=== PATIENT | female | born 1960 | race Two or more races ===

== ENCOUNTER 2021-03-12 21:18 | Emergency (ER) | payer OTHER ==
[~2021-03-12] VITALS: Ht 162.6 cm; Wt 90.7 kg
--- NOTE | 2021-03-12 21:35 | NUR ---
PT BIBRA 89 FROM HOME FOR OVERDOSE ON "HAND FULL MEDS POSSIBLY XANAX". NO VERBAL RESPONSE.
--- NOTE | 2021-03-12 21:36 | NUR ---
POX ON. O2SAT 93% ON RA. PT OPENS EYES TO TOUCH. RESP EVEN AND NONLABORED.
[2021-03-12 21:58] LABS: BASOPHILS # (AUTO) 0.1 K/uL (0.0-0.2); BASOPHILS % (AUTO) 0.9 % (0.0-2.0); EOSINOPHILS % (AUTO) 3.4 % (0.0-6.0); HEMATOCRIT 41 % (33-45); HEMOGLOBIN 13.9 g/dL (11.5-14.8); LYMPHOCYTES # (AUTO) 1.7 K/uL (0.8-4.8); LYMPHOCYTES % (AUTO) 27.5 % (20.0-44.0); MEAN CORPUSCULAR HGB CONC 34 g/dl (31.0-36.0); MEAN CORPUSCULAR VOLUME 85 fL (82-100); MONOCYTES # (AUTO) 0.4 K/uL (0.1-1.30); MONOCYTES % (AUTO) 7.4 % (2.0-12.0); NEUTROPHILS # (AUTO) 3.7 K/uL (1.8-8.9); NEUTROPHILS % (AUTO) 60.8 % (43.0-81.0); PLATELET COUNT (AUTO) 215 K/uL (150-450); RED BLOOD CELL COUNT(AUTO) 4.88 MIL/uL (4.0-5.2); WHITE BLOOD COUNT (AUTO) 6.1 K/uL (4.3-11.0)
--- NOTE | 2021-03-12 22:12 | NUR ---
PT SAT 91% ON RA. PUT ON O2 VIA 2LPM N/C; O2 SAT 94%. POLICE AT BEDSIDE.
[2021-03-12 22:13] LABS: ALANINE AMINOTRANSFERASE 24 U/L (12-78); ALBUMIN 4.4 g/dL (3.4-5.0); ALCOHOL, BLOOD 178 mg/dL (0-0); ALKALINE PHOSPHATASE 74 U/L (46-116); ASPARTATE AMINOTRANSFERASE 22 U/L (15-37); BILIRUBIN,DIRECT 0.1 mg/dL (0.0-0.2); BILIRUBIN,TOTAL 0.5 mg/dL (0.2-1.0); CALCIUM, SERUM 9.4 mg/dL (8.5-10.1); CARBON DIOXIDE 26 mmol/L (21-32); CHLORIDE 105 mmol/L (98-107); CREATININE 0.7 mg/dL (0.6-1.3); GLUCOSE 88 mg/dL (74-106); POTASSIUM 3.3 mmol/L (3.5-5.1); SODIUM SERUM 145 mmol/L (136-145); TOTAL PROTEIN, SERUM 8.1 g/dL (6.4-8.2); UREA NITROGEN, BLOOD 11 mg/dL (7-18)
[2021-03-12 22:19] LABS: ACETAMINOPHEN < 2 ug/ml (10-30)
--- NOTE | 2021-03-12 22:32 | NUR ---
CONTACTED POISON CONTROL, CARE INSTRUCTIONS GIVEN TO ER .
--- NOTE | 2021-03-12 22:55 | NUR ---
COLLECTED URINE SPECIMEN AND COVID SWAB VIA [employer] REMOVAL WORKER; SENT TO LAB
[2021-03-12 23:04] LABS: BILIRUBIN,URINE Negative (NEGATIVE); COLOR,URINE YELLOW (YELLOW); LEUKOCYTE ESTERASE ,URINE Negative (NEGATIVE); NITRITE, URINE Negative (NEGATIVE); PH,URINE 6.5 (5.0-8.0); PROTEIN,URINE Negative (NEGATIVE); UGLUCOSE Negative (NEGATIVE); UROBILINOGEN,URINE 0.2 EU/dL (0.2)
--- NOTE | 2021-03-13 01:40 | NUR ---
PATIENT OPENS EYES AND RESPONDS TO NAME. SPEACH IS CLEAR. PASSED SWALLOW EVAL
[2021-03-13] MEDS ORDERED: ONDANSETRON 4 MG TAB.RAPDIS ONE (01:43)
[2021-03-13] MEDS ORDERED: ONDANSETRON 4 MG TAB.RAPDIS SL ONE (02:00)
--- NOTE | 2021-03-13 04:13 | NUR ---
CONTACTED FUEL TANK SEALER AND TESTER TO EVALUATE PT.
[2021-03-13 05:05] LABS: ALCOHOL, BLOOD 56 mg/dL (0-0)
[2021-03-13 05:06] LABS: ACETAMINOPHEN < 0 ug/ml (10-30)
--- NOTE | 2021-03-13 05:11 | NUR ---
RADIOLOGICAL ENGINEER VAZQUEZ AT BEDSIDE FOR AM LABS
--- NOTE | 2021-03-13 05:16 | NUR ---
[employer] COMMISSIONER AT BEDSIDE TO [facility].
--- NOTE | 2021-03-13 05:58 | NUR ---
CALLED [facility] FOR PICKUP, ETA 1 HOUR
--- NOTE | 2021-03-13 06:44 | NUR ---
Pt is medically stable for d/c. Patient discharged to home in stable condition. Written and verbal after care instructions given. Patient verbalizes understanding of instruction. pt was picked up by the and wa assisted to the car via wc
[2021-03-13 06:46] VITALS: BP 129/75
== END 2021-03-13 06:48 | disposition home or self-care (01) ==
LOC: ER 21:20
DX: T42.4X2A Poisoning by benzodiazepines, intentional self-harm, initial encounter (principal); T43.592A Poisoning by other antipsychotics and neuroleptics, intentional self-harm, initial encounter; R40.0 Somnolence; Y92.039 Unspecified place in apartment as the place of occurrence of the external cause; Z20.822 Contact with and (suspected) exposure to COVID-19; R94.31 Abnormal electrocardiogram [ECG] [EKG]; F10.129 Alcohol abuse with intoxication, unspecified; Y90.6 Blood alcohol level of 120-199 mg/100 ml; F32.9 Major depressive disorder, single episode, unspecified; J44.9 Chronic obstructive pulmonary disease, unspecified; I10 Essential (primary) hypertension; E78.5 Hyperlipidemia, unspecified
CPT/HCPCS: 36415 ×2; 71045; 80048; 80076; 80143 ×2; 80179; 80307; 80320 ×2; 81003; 84484 ×2; 84703; 85025; 87426; 93005 ×2; 99291; C9803; Q0162; G0480

== ENCOUNTER 2023-02-21 15:10 | Emergency (ER) | payer MEDICAID, OTHER ==
[~2023-02-21] VITALS: Ht 165.1 cm; Wt 108.0 kg
[2023-02-21 15:53] LABS: BASOPHILS % (AUTO) 0.6 % (0.0-2.0); EOSINOPHILS # (AUTO) 0.3 K/uL (0.0-0.7); EOSINOPHILS % (AUTO) 6.3 % (0.0-6.0); HEMATOCRIT 32 % (33-45); HEMOGLOBIN 10.5 g/dL (11.5-14.8); LYMPHOCYTES # (AUTO) 1.4 K/uL (0.8-4.8); LYMPHOCYTES % (AUTO) 33.6 % (20.0-44.0); MEAN CORPUSCULAR HEMOGLOBIN 28 PG (26.0-33.0); MEAN CORPUSCULAR HGB CONC 33 g/dl (31.0-36.0); MEAN CORPUSCULAR VOLUME 84 fL (82-100); MONOCYTES # (AUTO) 0.4 K/uL (0.1-1.30); MONOCYTES % (AUTO) 9.3 % (2.0-12.0); NEUTROPHILS % (AUTO) 50.2 % (43.0-81.0); PLATELET COUNT (AUTO) 206 K/uL (150-450); RED BLOOD CELL COUNT(AUTO) 3.79 MIL/uL (4.0-5.2); RED CELL DISTRIBUTION WIDTH 20.2 % (11.5-15.0)
[2023-02-21] MEDS ORDERED: LIDOCAINE 5% (PATCH) 1 EA PATCH TP ONE (16:11)
[2023-02-21 16:13] LABS: CALCIUM, SERUM 8.9 mg/dL (8.5-10.1); CARBON DIOXIDE 23 mmol/L (21-32); CHLORIDE 109 mmol/L (98-107); CREATININE 0.7 mg/dL (0.6-1.3); GLUCOSE 81 mg/dL (74-106); POTASSIUM 3.1 mmol/L (3.5-5.1); SODIUM SERUM 143 mmol/L (136-145); UREA NITROGEN, BLOOD 13 mg/dL (7-18)
[2023-02-21 16:18] LABS: ALANINE AMINOTRANSFERASE 29 U/L (12-78); ALBUMIN 3.2 g/dL (3.4-5.0); ALCOHOL, BLOOD 174 mg/dL (0-10); ALKALINE PHOSPHATASE 67 U/L (46-116); ASPARTATE AMINOTRANSFERASE 16 U/L (15-37); BILIRUBIN,DIRECT 0.1 mg/dL (0.0-0.2); BILIRUBIN,TOTAL 0.3 mg/dL (0.2-1.0); TOTAL PROTEIN, SERUM 6.5 g/dL (6.4-8.2)
[2023-02-21 16:19] LABS: ACETAMINOPHEN <10 ug/ml (10-30); SALICYLATE < 2.3 mg/dL (2.8-20.0)
[2023-02-21 16:30] LABS: APPEARANCE,URINE CLEAR (CLEAR); BILIRUBIN,URINE NEGATIVE (NEGATIVE); BLOOD, URINE NEGATIVE Ery/uL (NEGATIVE); COLOR,URINE YELLOW (YELLOW); KETONES,URINE NEGATIVE (NEGATIVE); LEUKOCYTE ESTERASE ,URINE NEGATIVE (NEGATIVE); NITRITE, URINE NEGATIVE (NEGATIVE); PROTEIN,URINE NEGATIVE (NEGATIVE); UGLUCOSE NEGATIVE (NEGATIVE); UROBILINOGEN,URINE 0.2 EU/dL (0.2)
[2023-02-21] MEDS: LIDOCAINE 5% (PATCH) 1 EA PATCH TP SCH (16:34)
[2023-02-21 16:41] LABS: AMPHETAMINE, URINE NEGATIVE (NEGATIVE); BARBITURATE, URINE NEGATIVE (NEGATIVE); BENZODIAZEPINE, URINE NEGATIVE (NEGATIVE); CANNABINOID, URINE NEGATIVE (NEGATIVE); COCCAINE, URINE NEGATIVE (NEGATIVE); OPIATE, URINE NEGATIVE (NEGATIVE); PHENCYCLIDINE SCREEN,URINE NEGATIVE (NEGATIVE)
[2023-02-21] MEDS ORDERED: KETOROLAC TROMETHAMINE INJ 30 MG/ML VIAL IV ONE ×2 (17:00→21:30)
[2023-02-21] MEDS ORDERED: KETOROLAC TROMETHAMINE 15 MG/ML VIAL ONE ×2 (17:00→21:20)
[2023-02-21] MEDS ORDERED: LORAZEPAM INJ 2 MG/ML VIAL IV ONE (18:30)
[2023-02-21] MEDS ORDERED: ONDANSETRON HCL/PF - ER 4 MG/2 ML VIAL IV ONE (18:30)
[2023-02-21] MEDS ORDERED: ONDANSETRON HCL/PF 4 MG/2 ML VIAL ONE (18:38)
[2023-02-21] MEDS ORDERED: LORAZEPAM INJ 2 MG/ML VIAL ONE (18:38)
[2023-02-21] MEDS ORDERED: IV NS 0.9% 1,000 ML IV ONE (21:30)
[2023-02-21] MEDS ORDERED: METOCLOPRAMIDE HCL 10 MG/2 ML VIAL IV ONE (21:30)
[2023-02-21] MEDS ORDERED: METOCLOPRAMIDE HCL 10 MG/2 ML VIAL ONE (21:45)
[2023-02-21] MEDS ORDERED: MORPHINE SULFATE INJ 4 MG/ML DISP.SYRIN ONE (23:12)
[2023-02-21] MEDS ORDERED: MORPHINE SULFATE INJ 2 MG/ML DISP.SYRIN IV ONE (23:30)
[2023-02-22] MEDS ORDERED: ACETAMINOPHEN ES 500 MG TABLET PO ONE ×2 (04:00→13:00)
[2023-02-22] MEDS ORDERED: ACETAMINOPHEN ES 500 MG TABLET ONE (04:07)
[2023-02-22] MEDS ORDERED: ONDANSETRON HCL/PF - ER 4 MG/2 ML VIAL IV ONE (13:00)
[2023-02-22] MEDS ORDERED: ONDANSETRON HCL/PF 4 MG/2 ML VIAL ONE (13:35)
[2023-02-22] MEDS ORDERED: TRAMADOL HCL 50 MG TABLET ONE (13:36)
[2023-02-22] MEDS ORDERED: LIDOCAINE 5% (PATCH) 1 EA PATCH TP ONE (13:50)
[2023-02-22] MEDS: LIDOCAINE 5% (PATCH) 1 EA PATCH TP SCH (13:55)
[2023-02-22] MEDS ORDERED: TRAMADOL HCL 50 MG TABLET PO ONE (14:00)
[2023-02-22] MEDS ORDERED: CHLORDIAZEPOXIDE HCL 25 MG CAPSULE PO ONE (20:00)
[2023-02-22] MEDS ORDERED: CHLORDIAZEPOXIDE HCL 25 MG CAPSULE ONE (20:17)
[2023-02-22] MEDS ORDERED: KETOROLAC TROMETHAMINE 15 MG/ML VIAL ONE (22:57)
[2023-02-22] MEDS ORDERED: KETOROLAC TROMETHAMINE INJ 30 MG/ML VIAL IV ONE (23:00)
[2023-02-23] MEDS ORDERED: LORAZEPAM 1 MG TABLET ONE ×2 (01:38→09:19)
[2023-02-23] MEDS ORDERED: MORPHINE SULFATE INJ 2 MG/ML DISP.SYRIN ONE (01:39)
[2023-02-23] MEDS ORDERED: MORPHINE SULFATE INJ 2 MG/ML DISP.SYRIN IV ONE (02:00)
[2023-02-23] MEDS ORDERED: LORAZEPAM 1 MG TABLET PO ONE (02:00)
[2023-02-23] MEDS ORDERED: LORAZEPAM 1 MG TABLET PO PRN (09:00)
[2023-02-23] MEDS ORDERED: ZOLPIDEM TARTRATE 5 MG TABLET PO PRN (09:00)
[2023-02-23 16:29] VITALS: BP 158/88; TEMP 98.4; O2SAT 97
[2023-02-24] MEDS ORDERED: ACETAMINOPHEN ES 500 MG TABLET ONE (02:15)
== END 2023-02-23 18:52 ==
LOC: ER 15:15
DX: F32.A Depression, unspecified (principal); T43.592A Poisoning by other antipsychotics and neuroleptics, intentional self-harm, initial encounter; M25.511 Pain in right shoulder; E87.6 Hypokalemia; I10 Essential (primary) hypertension; E78.5 Hyperlipidemia, unspecified; J44.1 Chronic obstructive pulmonary disease with (acute) exacerbation; Z20.822 Contact with and (suspected) exposure to COVID-19; Y92.89 Other specified places as the place of occurrence of the external cause
CPT/HCPCS: 99291; 96374; 96375; 93005; 96376 ×3; 73030; 85025; 80048; 80076; 83735; 81003; 36415 ×2; 87426; 80143; 80320; 80307; 84132; 87635; J2060; J2270 ×2; J2765; J2405 ×4; J1885 ×3; C9803 ×2; G0480

== ENCOUNTER 2023-02-23 22:01 | Emergency (ER) | payer MEDICAID ==
[~2023-02-23] VITALS: Ht 167.6 cm; Wt 108.9 kg
[2023-02-24] MEDS ORDERED: ACETAMINOPHEN ES 500 MG TABLET PO ONE (02:30)
[2023-02-24] MEDS ORDERED: diphenhydrAMINE HCL 25 MG CAPSULE ONE (03:24)
[2023-02-24] MEDS ORDERED: DIPHENHYDRAMINE HCL 12.5 MG/5 ML UDC PO ONE (03:30)
[2023-02-24 08:12] VITALS: BP 144/77; TEMP 97; O2SAT 99
== END 2023-02-24 09:25 | disposition home or self-care (01) ==
LOC: ER 22:03
DX: T50.901A Poisoning by unspecified drugs, medicaments and biological substances, accidental (unintentional), initial encounter (principal); I10 Essential (primary) hypertension; E78.5 Hyperlipidemia, unspecified; J44.9 Chronic obstructive pulmonary disease, unspecified; Y92.89 Other specified places as the place of occurrence of the external cause
CPT/HCPCS: 99285; Q0163 ×2

== ENCOUNTER 2023-07-16 14:39 | Inpatient (IN) | payer MEDICAID ==
[~2023-07-16] VITALS: Ht 167.6 cm; Wt 104.3 kg
[2023-07-16] MEDS ORDERED: MORPHINE SULFATE INJ 4 MG/ML DISP.SYRIN ONE (16:57)
[2023-07-16] MEDS ORDERED: KETOROLAC TROMETHAMINE INJ 30 MG/ML VIAL ONE (16:57)
[2023-07-16] MEDS ORDERED: MORPHINE SULFATE INJ 2 MG/ML DISP.SYRIN IM ONE (17:00)
[2023-07-16] MEDS ORDERED: KETOROLAC TROMETHAMINE INJ 60 MG/2 ML VIAL IM ONE (17:00)
[2023-07-16 19:10] LABS: APPEARANCE,URINE CLEAR (CLEAR); BILIRUBIN,URINE NEGATIVE (NEGATIVE); BLOOD, URINE NEGATIVE Ery/uL (NEGATIVE); COLOR,URINE YELLOW (YELLOW); KETONES,URINE NEGATIVE (NEGATIVE); LEUKOCYTE ESTERASE ,URINE NEGATIVE (NEGATIVE); NITRITE, URINE NEGATIVE (NEGATIVE); PH,URINE 6.5 (5.0-8.0); PROTEIN,URINE NEGATIVE (NEGATIVE); UGLUCOSE NEGATIVE (NEGATIVE)
[2023-07-16 19:10] LABS: BASOPHILS % (AUTO) 0.9 % (0.0-2.0); EOSINOPHILS # (AUTO) 0.3 K/uL (0.0-0.7); EOSINOPHILS % (AUTO) 5.3 % (0.0-6.0); HEMATOCRIT 33 % (33-45); HEMOGLOBIN 11.2 g/dL (11.5-14.8); LYMPHOCYTES # (AUTO) 1.5 K/uL (0.8-4.8); LYMPHOCYTES % (AUTO) 30.3 % (20.0-44.0); MEAN CORPUSCULAR HEMOGLOBIN 30 PG (26.0-33.0); MEAN CORPUSCULAR HGB CONC 34 g/dl (31.0-36.0); MEAN CORPUSCULAR VOLUME 89 fL (82-100); MONOCYTES # (AUTO) 0.3 K/uL (0.1-1.30); MONOCYTES % (AUTO) 5.6 % (2.0-12.0); NEUTROPHILS # (AUTO) 2.9 K/uL (1.8-8.9); NEUTROPHILS % (AUTO) 57.9 % (43.0-81.0); PLATELET COUNT (AUTO) 185 K/uL (150-450); RED BLOOD CELL COUNT(AUTO) 3.74 MIL/uL (4.0-5.2); RED CELL DISTRIBUTION WIDTH 17.3 % (11.5-15.0)
[2023-07-16 19:23] LABS: BILIRUBIN,TOTAL 0.4 mg/dL (0.2-1.0); CALCIUM, SERUM 8.8 mg/dL (8.5-10.1); CREATININE 0.7 mg/dL (0.6-1.3); POTASSIUM 4.4 mmol/L (3.5-5.1); TOTAL PROTEIN, SERUM 6.7 g/dL (6.4-8.2)
[2023-07-16] MEDS ORDERED: ONDANSETRON HCL/PF 4 MG/2 ML VIAL IVP ONE (19:30)
[2023-07-16] MEDS ORDERED: HYDROMORPHONE INJ 2 MG/ML DISP.SYRIN IV ONE (19:30)
[2023-07-16] MEDS ORDERED: ONDANSETRON HCL/PF 4 MG/2 ML VIAL ONE (19:40)
[2023-07-16] MEDS ORDERED: HYDROMORPHONE 1 MG/1 ML DISP.SYRIN ONE (19:41)
[2023-07-16] MEDS ORDERED: TRAZODONE 50 MG TABLET PO ONE (21:00)
[2023-07-16] MEDS ORDERED: QUETIAPINE FUMARATE 100 MG TABLET PO SCH (21:00)
[2023-07-16] MEDS ORDERED: QUETIAPINE FUMARATE 100 MG TABLET ONE (22:13)
[2023-07-16] MEDS ORDERED: TRAZODONE 50 MG TABLET ONE ×2 (22:18→22:48)
[2023-07-17] MEDS ORDERED: HYDROMORPHONE 1 MG/1 ML DISP.SYRIN ONE ×5 (03:05→22:26)
[2023-07-17] MEDS ORDERED: HYDROMORPHONE 1 MG/1 ML DISP.SYRIN IV ONE (03:30)
[2023-07-17] MEDS ORDERED: CARV6.25 PO (03:31)
[2023-07-17] MEDS ORDERED: ATOR80TA PO (03:31)
[2023-07-17] MEDS ORDERED: MONT10TA22 PO (03:31)
[2023-07-17] MEDS ORDERED: QUET300T2 PO (03:31)
[2023-07-17] MEDS ORDERED: TRAZ-257 PO (03:31)
[2023-07-17] MEDS ORDERED: POTA10CA43 PO (03:31)
[2023-07-17] MEDS ORDERED: AMLO5TAB4 PO (03:31)
[2023-07-17] MEDS ORDERED: SPIR25TA PO (03:31)
[2023-07-17] MEDS ORDERED: FURO-145 PO (03:31)
[2023-07-17] MEDS ORDERED: BUSP30TA2 PO (03:31)
[2023-07-17] MEDS ORDERED: CYCLOBENZAPRINE 10 MG TABLET PO PRN (04:30)
[2023-07-17] MEDS ORDERED: ONDANSETRON HCL/PF 4 MG/2 ML VIAL IV PRN (04:30)
[2023-07-17] MEDS ORDERED: ZOLPIDEM TARTRATE 5 MG TABLET PO PRN (04:30)
[2023-07-17] MEDS ORDERED: ACETAMINOPHEN 325 MG TABLET PO PRN (04:30)
[2023-07-17] MEDS ORDERED: HYDROCODONE/APAP 5/325MG TABLET PO PRN ×2 (04:30)
[2023-07-17] MEDS ORDERED: HYDROCODONE/APAP 5/325MG TABLET ONE (08:06)
[2023-07-17] MEDS ORDERED: CYCLOBENZAPRINE 10 MG TABLET ONE (08:06)
[2023-07-17 08:14] LABS: BASOPHILS % (AUTO) 0.7 % (0.0-2.0); EOSINOPHILS # (AUTO) 0.2 K/uL (0.0-0.7); EOSINOPHILS % (AUTO) 4.4 % (0.0-6.0); HEMATOCRIT 34 % (33-45); HEMOGLOBIN 11.3 g/dL (11.5-14.8); LYMPHOCYTES # (AUTO) 1.4 K/uL (0.8-4.8); LYMPHOCYTES % (AUTO) 27.9 % (20.0-44.0); MEAN CORPUSCULAR HEMOGLOBIN 30 PG (26.0-33.0); MEAN CORPUSCULAR HGB CONC 33 g/dl (31.0-36.0); MEAN CORPUSCULAR VOLUME 91 fL (82-100); MONOCYTES # (AUTO) 0.4 K/uL (0.1-1.30); MONOCYTES % (AUTO) 7.5 % (2.0-12.0); NEUTROPHILS # (AUTO) 2.9 K/uL (1.8-8.9); NEUTROPHILS % (AUTO) 59.5 % (43.0-81.0); PLATELET COUNT (AUTO) 193 K/uL (150-450); RED BLOOD CELL COUNT(AUTO) 3.78 MIL/uL (4.0-5.2); RED CELL DISTRIBUTION WIDTH 17.4 % (11.5-15.0); WHITE BLOOD COUNT (AUTO) 4.9 K/uL (4.3-11.0)
[2023-07-17 08:46] LABS: CALCIUM, SERUM 8.9 mg/dL (8.5-10.1); CREATININE 0.8 mg/dL (0.6-1.3); POTASSIUM 4.3 mmol/L (3.5-5.1)
[2023-07-17] MEDS: HYDROMORPHONE 1 MG/1 ML DISP.SYRIN IV PRN ×3 (09:48→22:29)
[2023-07-17] MEDS: ENOXAPARIN SODIUM 40 MG/0.4 ML DISP.SYRIN SQ SCH (11:00)
[2023-07-17] MEDS ORDERED: ENOXAPARIN SODIUM 40 MG/0.4 ML DISP.SYRIN SQ ONE (12:12)
[2023-07-17] MEDS: CARVEDILOL 6.25 MG TABLET PO SCH (17:00)
[2023-07-17] MEDS: AMLODIPINE BESYLATE 10 MG TABLET PO SCH (17:00)
[2023-07-17] MEDS ORDERED: AMLODIPINE BESYLATE 5 MG TABLET ONE (17:49)
[2023-07-17] MEDS ORDERED: CARVEDILOL 6.25 MG TABLET ONE (17:49)
[2023-07-17] MEDS ORDERED: QUETIAPINE FUMARATE 100 MG TABLET ONE (17:49)
[2023-07-17] MEDS ORDERED: MONTELUKAST SODIUM (10MG) 10 MG TABLET PO SCH (18:00)
[2023-07-17] MEDS ORDERED: QUETIAPINE FUMARATE 100 MG TABLET PO SCH (18:00)
[2023-07-17] MEDS ORDERED: busPIRone HCL 10 MG TABLET PO SCH (21:00)
[2023-07-17] MEDS ORDERED: TRAZODONE 50 MG TABLET ONE (21:40)
[2023-07-17] MEDS ORDERED: ATORVASTATIN 40 MG TABLET ONE (21:41)
[2023-07-17] MEDS ORDERED: busPIRone 5 MG TABLET ONE (21:42)
[2023-07-17] MEDS ORDERED: ATORVASTATIN 40 MG TABLET PO SCH (22:00)
[2023-07-17] MEDS ORDERED: TRAZODONE 50 MG TABLET PO SCH (22:00)
[2023-07-17 22:35] VITALS: TEMP 98.1; O2SAT 95
[2023-07-18] MEDS ORDERED: HYDROMORPHONE 1 MG/1 ML DISP.SYRIN ONE ×2 (03:14→08:33)
[2023-07-18] MEDS: HYDROMORPHONE 1 MG/1 ML DISP.SYRIN IV PRN ×4 (03:32→15:29)
[2023-07-18] MEDS ORDERED: SPIRONOLACTONE 25 MG TABLET PO SCH (09:00)
[2023-07-18] MEDS ORDERED: POTASSIUM CHLORIDE 10 MEQ TABLET.SA PO SCH (09:00)
[2023-07-18] MEDS ORDERED: FUROSEMIDE 20 MG TABLET PO SCH (09:00)
[2023-07-18] MEDS: CARVEDILOL 6.25 MG TABLET PO SCH (09:58)
[2023-07-18 09:59] VITALS: BP 128/84
[2023-07-18] MEDS: AMLODIPINE BESYLATE 10 MG TABLET PO SCH (09:59)
[2023-07-18] MEDS: ENOXAPARIN SODIUM 40 MG/0.4 ML DISP.SYRIN SQ SCH (11:58)
[2023-07-18] MEDS ORDERED: busPIRone 5 MG TABLET PO SCH (21:00)
== END 2023-07-18 16:15 | disposition home health service (06) | DRG 351 ==
LOC: ER 14:44 → TRANSITION 07-17 06:08 → MED 07-18 08:17
PROVIDERS: ADMIT Internal Medicine; ATTEND Internal Medicine
DX: S39.012A Strain of muscle, fascia and tendon of lower back, initial encounter (principal); I11.0 Hypertensive heart disease with heart failure; M48.56XA Collapsed vertebra, not elsewhere classified, lumbar region, initial encounter for fracture; I50.9 Heart failure, unspecified; J44.9 Chronic obstructive pulmonary disease, unspecified; E66.9 Obesity, unspecified; M54.31 Sciatica, right side; M81.0 Age-related osteoporosis without current pathological fracture; Z68.37 Body mass index [BMI] 37.0-37.9, adult; E78.5 Hyperlipidemia, unspecified; Z88.8 Allergy status to other drugs, medicaments and biological substances; Z91.013 Allergy to seafood; F32.A Depression, unspecified; Z96.643 Presence of artificial hip joint, bilateral; Z96.651 Presence of right artificial knee joint; M47.816 Spondylosis without myelopathy or radiculopathy, lumbar region; J44.89 Other specified chronic obstructive pulmonary disease; I70.0 Atherosclerosis of aorta; X58.XXXA Exposure to other specified factors, initial encounter; Y92.9 Unspecified place or not applicable
CPT/HCPCS: 36415; 72131-TC; 72148-TC; 72192-TC; 80048-TC; 80053-TC; 85025-TC; 87081-TC; 93307-TC; 97116-TC; 97530-TC; A4223; G0378; J1170; J1650; J1885; J2270; J2405